=== PATIENT | male | born 1965 | race African-American/Black ===

== ENCOUNTER 2017-09-15 21:32 | Emergency (ER) | payer OTHER ==
[~2017-09-15] VITALS: Ht 185.4 cm; Wt 102.9 kg
[2017-09-15 22:10] LABS: HEMATOCRIT 35.6 % (38.0-50.0); HEMOGLOBIN 12.2 G/DL (12.5-16.6); MCH 22.9 PG (29.0-34.0); MCHC 34.3 G/DL (30.0-36.0); MCV 66.8 FL (86-99); NRBC (%) 0.4 /100 WBC (0-0); RBC DIS.WIDTH-CV 25.9 % (11.8-14.6); RBC DIS.WIDTH-SD 58.6 % (39-53); RED BLOOD COUNT 5.33 M/uL (4.00-5.50)
[2017-09-15 22:16] LABS: CHLORIDE 103 mEq/L (99-109); POTASSIUM 3.5 mEq/L (3.7-5.4); SODIUM 138 mEq/L (136-147)
[2017-09-15 22:17] LABS: GLUCOSE 78 mg/dL (70-99)
[2017-09-15 22:21] LABS: CREATININE 1.1 mg/dL (0.6-1.3)
[2017-09-15 22:22] LABS: UREA NITROGEN (BUN) 10 mg/dL (9-23)
[2017-09-15 22:24] LABS: GFR ESTIMATE (CALCULATED) > 59 mL/min/ (58.99-99999)
[2017-09-15 22:27] LABS: TROP-I INTERPRETATION NEGATIVE; TROPONIN-I < 0.01 ng/mL (0.0-0.30)
[2017-09-15 22:47] LABS: PLAT.SUFFICIENCY DECREASED; PLATELET COUNT 100 K/uL (156-360)
[2017-09-16 00:35] VITALS: BP 121/72
== END 2017-09-16 01:06 | disposition home or self-care (01) ==
LOC: EME 21:32
DX: R07.9 Chest pain, unspecified (principal); M25.522 Pain in left elbow
CPT/HCPCS: 71046; 73080; 80048; 84484; 85027; 93005; 99281; 99285